=== PATIENT | female | born 1990 | race Caucasian/White ===

== ENCOUNTER 2021-06-17 20:27 | Emergency (ER) | payer OTHER, SELFPAY ==
[~2021-06-17] VITALS: Ht 170.2 cm; Wt 114.4 kg
[~2021-06-17 20:27] MED LIST: ACET-654 PO; ACET1TAB15 PO; ADVI200T PO; ANUS2.5C2 EXT; AUGM500T34 PO; AUGM875T27 PO; BACT800T5 PO; DOCU5LIQ PO; IBUP600T26 PO; LEVO500T PO; MAPA500T17 PO; MOM30SS PO; NICO21DI3 TD; ONDA-1 PO; OXYC1TAB23 PO; PERC7.5T12 PO; PRENTAB66 PO; SENO8.6T9 PO; TYLE325T5 PO; tylenol PO
[2021-06-18] MEDS ORDERED: BACTDSTA PO (03:50)
[2021-06-18] MEDS ORDERED: ERYT5OIN25 OP (03:50)
[2021-06-18] MEDS ORDERED: AZEL1SPR3 NARES (04:54)
[2021-06-18] MEDS ORDERED: PRED20TA PO (04:54)
[2021-06-18] MEDS ORDERED: CETI-24 PO (04:54)
[2021-06-18] MEDS ORDERED: predniSONE 20 MG TAB PO ONE (04:55)
[2021-06-18 05:00] VITALS: BP 132/68
== END 2021-06-18 05:15 | disposition home or self-care (01) ==
LOC: M ED 20:27
DX: J30.2 Other seasonal allergic rhinitis (principal)
CPT/HCPCS: 99283; J7512

== ENCOUNTER 2022-07-18 18:05 | Emergency (ER) | payer OTHER ==
[~2022-07-18] VITALS: Ht 170.2 cm; Wt 101.6 kg
[~2022-07-18 18:05] MED LIST changes: +AZEL1SPR3 NARES; +BACTDSTA PO; +CETI-24 PO; +ERYT5OIN25 OP; +PRED20TA PO
[2022-07-18] MEDS ORDERED: CLAR1TAB13 PO (19:56)
[2022-07-18 20:02] VITALS: BP 120/71
== END 2022-07-18 20:02 | disposition home or self-care (01) ==
LOC: M ED 18:05
DX: H92.03 Otalgia, bilateral (principal)

== ENCOUNTER → 2022-07-25 | Outpatient (REF) | payer OTHER ==
[~2022-07-25] MED LIST changes: +CLAR1TAB13 PO
[2022-07-25 13:45] LABS: APPEARANCE, URINE MANUAL HAZY (CLEAR); BILIRUBIN, URINE MANUAL NEGATIVE (NEGATIVE); BLOOD URINE MANUAL POSITIVE (NEGATIVE); COLOR, URINE MANUAL YELLOW (YELLOW); GLUCOSE, URINE (UA) MANUAL NEGATIVE (NEGATIVE); KETONE, URINE MANUAL NEGATIVE (NEGATIVE); LEUKOCYTE ESTERASE, URINE MAN TRACE (NEGATIVE); NITRITE, URINE MANUAL NEGATIVE (NEGATIVE); PROTEIN, URINE MANUAL TRACE mg/dL (NEGATIVE); UROBILINOGEN, URINE MANUAL NORMAL (NORMAL)
[2022-07-25 14:27] LABS: BACTERIA, URINE SMALL AMOUNT; HYALINE CAST, URINE NONE SEEN /lpf (0-1); MUCUS, URINE LARGE AMOUNT (NEGATIVE); RBC, URINE 20-30 /hpf (0-3); SQUAMOUS EPITHELIAL CELL URINE MOD AMOUNT /hpf (SMALL AMT)
== END ==
LOC: M LAB REF 12:07
PROVIDERS: ATTEND Physician Assistant
DX: N39.0 Urinary tract infection, site not specified (principal)

== ENCOUNTER → 2022-11-18 | Outpatient (REF) | payer OTHER | LOC: M LAB REF 13:01 | PROVIDERS: ATTEND Physician Assistant | DX: R11.0 Nausea (principal); B89 Unspecified parasitic disease ==

== ENCOUNTER 2023-08-13 03:14 | Emergency (ER) | payer OTHER ==
[~2023-08-13] VITALS: Ht 170.2 cm; Wt 101.3 kg
[2023-08-13 05:02] LABS: APPEARANCE, URINE CLEAR (CLEAR); BACTERIA, URINE AUTO NEGATIVE (NEGATIVE); BILIRUBIN, URINE AUTO NEGATIVE (NEGATIVE); BLOOD, URINE BLOOD NEGATIVE (NEGATIVE); COLOR, URINE YELLOW (YELLOW); GLUCOSE, URINE (UA) AUTO NEGATIVE (NEGATIVE); KETONE, URINE AUTO NEGATIVE (NEGATIVE); LEUKOCYTE ESTERASE, URINE AUTO NEGATIVE (NEGATIVE); MUCUS, URINE SMALL (NEGATIVE); NITRITE, URINE AUTO NEGATIVE (NEGATIVE); PROTEIN, URINE AUTO NEGATIVE (NEGATIVE); RBC, URINE AUTO 2 /HPF (0-3); SPECIFIC GRAVITY URINE AUTO 1.028 (1.002-1.035); SQUAMOUS EPITHELIAL CELL UR AU 1 /HPF (0-6); UROBILINOGEN, URINE AUTO 0.2 mg/dL (0.0-2.0); WBC, URINE AUTO 3 /HPF (0-3)
[2023-08-13] MEDS ORDERED: NS 1,000 ML IV ONE (05:15)
[2023-08-13] MEDS ORDERED: ONDANSETRON 4MG 2ML VIAL IV ONE (05:15)
[2023-08-13] MEDS ORDERED: KETOROLAC 30 MG/ML 1ML VIAL IV ONE (05:40)
[2023-08-13] MEDS ORDERED: GASTROGRAFIN SOLUTION 30ML As Ordered ONE (05:43)
[2023-08-13 05:45] LABS: BASO % 0.3 % (0.0-1.0); EOS # 0.1 10^3/uL (0.0-0.5); EOS % 0.8 % (0.0-3.0); HEMATOCRIT 40.2 % (36.0-47.0); HEMOGLOBIN 13.6 g/dl (12.0-15.5); LYMPH # 2.8 10^3/uL (1.5-5.0); LYMPH % 25.2 % (24.0-44.0); MEAN CORPUSCULAR HEMOGLOBIN 30.4 pg (27.0-33.0); MEAN CORPUSCULAR HGB CONC 33.8 g/dl (32.0-36.5); MEAN CORPUSCULAR VOLUME 89.9 fl (80.0-96.0); MONO # 0.7 10^3/uL (0.0-0.8); NEUTROPHILS # 7.4 10^3/uL (1.5-8.5); NEUTROPHILS % 67.5 % (36.0-66.0); PLATELET COUNT, AUTOMATED 244 10^3/uL (150-450); RED BLOOD COUNT 4.47 10^6/uL (4.00-5.40)
[2023-08-13] MEDS: GASTROGRAFIN SOLUTION 30ML PO SCH ×2 (05:50→06:24)
[2023-08-13 06:08] LABS: LIPASE 33 U/L (12-53)
[2023-08-13 06:10] LABS: ALBUMIN 4.1 G/DL (3.2-5.2); ALKALINE PHOSPHATASE 56 U/L (46-116); ALT/SGPT 12 U/L (7.0-40); AST/SGOT 12 U/L (<34); BILIRUBIN,TOTAL 0.6 MG/DL (0.3-1.2); BLOOD UREA NITROGEN 16 MG/DL (9-23); CALCIUM LEVEL 8.9 MG/DL (8.5-10.1); CARBON DIOXIDE LEVEL 26 MMOL/L (20-31); CHLORIDE LEVEL 107 MMOL/L (98-107); CREATININE FOR GFR 0.59 MG/DL (0.55-1.30); GLOMERULAR FILTRATION RATE > 60.0 (>60); GLUCOSE, FASTING 86 MG/DL (60-100); SODIUM LEVEL 142 MMOL/L (136-145); TOTAL PROTEIN 7.4 G/DL (5.7-8.2)
[2023-08-13] MEDS ORDERED: ISOVUE-370 76% 100ML VIAL As Ordered ONE (07:15)
[2023-08-13] MEDS ORDERED: GLYCERIN ADULT SUPP PR ONE (10:00)
[2023-08-13] MEDS ORDERED: HOME MED LIST COMPLETE! XX SCH (11:15)
[2023-08-13] MEDS ORDERED: POLY17PO18 PO (11:22)
[2023-08-13] MEDS ORDERED: PROC1AER16 PR (11:22)
[2023-08-13] MEDS ORDERED: FLOM0.4C39 PO (11:22)
[2023-08-13 12:19] VITALS: BP_SYST 115; TEMP 98.1; O2SAT 100
== END 2023-08-13 12:21 | disposition home or self-care (01) ==
LOC: M ED 03:14
DX: N20.1 Calculus of ureter (principal); K59.00 Constipation, unspecified; K64.9 Unspecified hemorrhoids
CPT/HCPCS: 74177; 80053; 81001; 83605; 83690; 84702; 85025; 96374; 96375; 99284; J1885; J2405; Q9967

== ENCOUNTER 2023-08-19 00:30 | Inpatient (IN) | payer OTHER ==
[~2023-08-19] VITALS: Ht 167.6 cm; Wt 101.7 kg
[~2023-08-19 00:30] MED LIST changes: +FLOM0.4C39 PO; +POLY17PO18 PO; +PROC1AER16 PR
[2023-08-19] MEDS ORDERED: ONDANSETRON 4MG 2ML VIAL IV ONE (00:55)
[2023-08-19] MEDS ORDERED: KETOROLAC 30 MG/ML 1ML VIAL IV ONE (00:55)
[2023-08-19] MEDS ORDERED: NS 1,000 ML IV ONE (00:55)
[2023-08-19 01:02] LABS: BASO # 0.1 10^3/uL (0.0-0.2); BASO % 0.4 % (0.0-1.0); EOS # 0.2 10^3/uL (0.0-0.5); EOS % 1.5 % (0.0-3.0); HEMATOCRIT 41.5 % (36.0-47.0); HEMOGLOBIN 14.2 g/dl (12.0-15.5); LYMPH # 4.1 10^3/uL (1.5-5.0); LYMPH % 36.8 % (24.0-44.0); MEAN CORPUSCULAR HEMOGLOBIN 30.8 pg (27.0-33.0); MEAN CORPUSCULAR HGB CONC 34.2 g/dl (32.0-36.5); MONO # 0.9 10^3/uL (0.0-0.8); NEUTROPHILS % 52.9 % (36.0-66.0); PLATELET COUNT, AUTOMATED 298 10^3/uL (150-450); RED BLOOD COUNT 4.61 10^6/uL (4.00-5.40); WHITE BLOOD COUNT 11.3 10^3/uL (4.0-10.0)
[2023-08-19 01:36] LABS: BLOOD UREA NITROGEN 15 MG/DL (9-23); CALCIUM LEVEL 9.6 MG/DL (8.5-10.1); CARBON DIOXIDE LEVEL 22 MMOL/L (20-31); CHLORIDE LEVEL 108 MMOL/L (98-107); CREATININE FOR GFR 0.66 MG/DL (0.55-1.30); GLOMERULAR FILTRATION RATE > 60.0 (>60); GLUCOSE, FASTING 103 MG/DL (60-100); POTASSIUM SERUM 4.2 MMOL/L (3.5-5.1); SODIUM LEVEL 142 MMOL/L (136-145)
[2023-08-19] MEDS ORDERED: MORPHINE 4 MG/ML 1ML VIAL IV ONE (01:55)
[2023-08-19 04:22] LABS: RSV AMPLIFICATION NEGATIVE (NEGATIVE)
[2023-08-19] MEDS ORDERED: TAMS1CAP17 PO (04:22)
[2023-08-19] MEDS ORDERED: MIRA3350 PO (04:22)
[2023-08-19] MEDS ORDERED: HOME MED LIST COMPLETE! XX SCH (04:25)
[2023-08-19] MEDS ORDERED: HYDROMORPHONE HCL 0.5 MG/ 0.5 ML SYRINGE IV PRN (05:25)
[2023-08-19] MEDS ORDERED: LR 1,000 ML IV SCH (05:25)
[2023-08-19] MEDS ORDERED: ONDANSETRON 4MG 2ML VIAL IV PRN (05:25)
[2023-08-19 06:12] VITALS: BP 106/70; TEMP 97.6; O2SAT 97
[2023-08-19] MEDS ORDERED: SODIUM CHLORIDE HYPERTONIC 3% 4ML NEB SOL INH SCH (08:00)
[2023-08-19 08:20] VITALS: BP 101/57; TEMP 97.7; O2SAT 99
[2023-08-19] MEDS: HYDROMORPHONE HCL 0.5 MG/ 0.5 ML SYRINGE IV PRN ×3 (08:44→22:15)
[2023-08-19] MEDS: NICOTINE 7 MG/24 HR TRANSDERMAL TD SCH (08:45)
[2023-08-19] MEDS: TAMSULOSIN 0.4 MG CAP PO SCH (08:45)
[2023-08-19] MEDS: NS 1,000 ML IV SCH ×2 (09:48→22:12)
[2023-08-19] MEDS ORDERED: PROMETHAZINE 25MG/ML 1ML VIAL IV PRN (10:55)
[2023-08-19] MEDS: cefTRIAXone SOD 1 GM in D5W MINI-BAG PLUS 50 ML IV SCH (11:29)
[2023-08-19 12:00] VITALS: BP 106/68; TEMP 97.8; O2SAT 98
[2023-08-19 15:44] VITALS: BP 103/63; TEMP 98.5; O2SAT 99
[2023-08-19 20:33] LABS: HEMATOCRIT 36.8 % (36.0-47.0); HEMOGLOBIN 12.4 g/dl (12.0-15.5); MEAN CORPUSCULAR HEMOGLOBIN 31.4 pg (27.0-33.0); MEAN CORPUSCULAR HGB CONC 33.7 g/dl (32.0-36.5); MEAN CORPUSCULAR VOLUME 93.2 fl (80.0-96.0); RED BLOOD COUNT 3.95 10^6/uL (4.00-5.40); WHITE BLOOD COUNT 7.3 10^3/uL (4.0-10.0)
[2023-08-19 20:54] LABS: PLATELET COUNT, AUTOMATED 175 10^3/uL (150-450)
[2023-08-19 20:59] LABS: BLOOD UREA NITROGEN 15 MG/DL (9-23); CALCIUM LEVEL 8.4 MG/DL (8.5-10.1); CARBON DIOXIDE LEVEL 25 MMOL/L (20-31); CHLORIDE LEVEL 109 MMOL/L (98-107); CREATININE FOR GFR 0.92 MG/DL (0.55-1.30); GLOMERULAR FILTRATION RATE > 60.0 (>60); GLUCOSE, FASTING 129 MG/DL (60-100); POTASSIUM SERUM 3.6 MMOL/L (3.5-5.1); SODIUM LEVEL 144 MMOL/L (136-145)
[2023-08-20] VITALS (16 sets, daily range): BP systolic 87–117; BP diastolic 51–72; TEMP 97–98.6; O2SAT 92–100
[2023-08-20] MEDS ORDERED: NS 500 ML IV ONE (04:55)
[2023-08-20] MEDS: NS 1,000 ML IV SCH ×2 (05:41→20:01)
[2023-08-20 05:44] LABS: BASO % 0.5 % (0.0-1.0); EOS # 0.1 10^3/uL (0.0-0.5); HEMATOCRIT 33.3 % (36.0-47.0); HEMOGLOBIN 11.2 g/dl (12.0-15.5); LYMPH # 2.3 10^3/uL (1.5-5.0); LYMPH % 37.5 % (24.0-44.0); MEAN CORPUSCULAR HEMOGLOBIN 30.9 pg (27.0-33.0); MEAN CORPUSCULAR HGB CONC 33.6 g/dl (32.0-36.5); MONO # 0.5 10^3/uL (0.0-0.8); MONO % 7.5 % (2.0-8.0); NEUTROPHILS # 3.1 10^3/uL (1.5-8.5); NEUTROPHILS % 52.2 % (36.0-66.0); PLATELET COUNT, AUTOMATED 168 10^3/uL (150-450); RED BLOOD COUNT 3.62 10^6/uL (4.00-5.40)
[2023-08-20 06:03] LABS: BLOOD UREA NITROGEN 12 MG/DL (9-23); CARBON DIOXIDE LEVEL 24 MMOL/L (20-31); CHLORIDE LEVEL 111 MMOL/L (98-107); GLOMERULAR FILTRATION RATE > 60.0 (>60); GLUCOSE, FASTING 85 MG/DL (60-100); SODIUM LEVEL 144 MMOL/L (136-145)
[2023-08-20] MEDS: NICOTINE 7 MG/24 HR TRANSDERMAL TD SCH (09:00)
[2023-08-20] MEDS ORDERED: NS 1,000 ML IV ONE (10:15)
[2023-08-20] MEDS: PERCOCET 5MG/325MG TAB PO PRN (10:18)
[2023-08-20] MEDS: cefTRIAXone SOD 1 GM in D5W MINI-BAG PLUS 50 ML IV SCH (10:18)
[2023-08-20] MEDS: TAMSULOSIN 0.4 MG CAP PO SCH (10:18)
[2023-08-20] MEDS: MORPHINE 2 MG/ML 1ML VIAL IV PRN ×2 (13:08→21:38)
[2023-08-20] MEDS ORDERED: MIDAZOLAM INJ 2MG/2ML VIAL As Ordered ONE (16:01)
[2023-08-20] MEDS ORDERED: fentaNYL 100 MCG/2 ML INJECTION As Ordered ONE (16:02)
[2023-08-20] MEDS ORDERED: propofoL 200 MG/20 ML VIAL As Ordered ONE (16:02)
[2023-08-20] MEDS ORDERED: ONDANSETRON 4MG 2ML VIAL As Ordered ONE (16:02)
[2023-08-20] MEDS ORDERED: LIDOCAINE 2% 100MG/5ML SDV (FOR ANES.) As Ordered ONE (16:02)
[2023-08-20] MEDS ORDERED: KETOROLAC 60MG 2ML VIAL As Ordered ONE (16:02)
[2023-08-20] MEDS ORDERED: ISOVUE-300 61% 100ML VIAL As Ordered ONE (16:17)
[2023-08-20] MEDS ORDERED: oxyCODONE 5MG TAB PO PRN (17:20)
[2023-08-20] MEDS ORDERED: HYDROMORPHONE HCL 0.5 MG/ 0.5 ML SYRINGE IV PRN (17:20)
[2023-08-20] MEDS ORDERED: LR 1,000 ML IV SCH (17:20)
[2023-08-20] MEDS ORDERED: fentaNYL 100 MCG/2 ML INJECTION IV PRN (17:20)
[2023-08-20] MEDS ORDERED: ONDANSETRON 4MG 2ML VIAL IV PRN (17:20)
[2023-08-21] MEDS: MORPHINE 2 MG/ML 1ML VIAL IV PRN (03:47)
[2023-08-21 04:01] VITALS: BP 98/56; TEMP 97.2; O2SAT 96
[2023-08-21] MEDS: PERCOCET 5MG/325MG TAB PO PRN (06:13)
[2023-08-21] MEDS: NS 1,000 ML IV SCH (06:13)
[2023-08-21 06:20] LABS: BASO % 0.2 % (0.0-1.0); EOS % 0.2 % (0.0-3.0); HEMATOCRIT 35.9 % (36.0-47.0); LYMPH # 0.9 10^3/uL (1.5-5.0); LYMPH % 15.5 % (24.0-44.0); MEAN CORPUSCULAR HEMOGLOBIN 30.4 pg (27.0-33.0); MEAN CORPUSCULAR HGB CONC 33.4 g/dl (32.0-36.5); MEAN CORPUSCULAR VOLUME 90.9 fl (80.0-96.0); MONO # 0.2 10^3/uL (0.0-0.8); MONO % 3.8 % (2.0-8.0); NEUTROPHILS # 4.6 10^3/uL (1.5-8.5); NEUTROPHILS % 79.8 % (36.0-66.0); PLATELET COUNT, AUTOMATED 167 10^3/uL (150-450); RED BLOOD COUNT 3.95 10^6/uL (4.00-5.40); WHITE BLOOD COUNT 5.7 10^3/uL (4.0-10.0)
[2023-08-21 06:42] LABS: BLOOD UREA NITROGEN 10 MG/DL (9-23); CALCIUM LEVEL 8.6 MG/DL (8.5-10.1); CARBON DIOXIDE LEVEL 22 MMOL/L (20-31); CHLORIDE LEVEL 110 MMOL/L (98-107); CREATININE FOR GFR 0.49 MG/DL (0.55-1.30); GLOMERULAR FILTRATION RATE > 60.0 (>60); GLUCOSE, FASTING 118 MG/DL (60-100); POTASSIUM SERUM 4.4 MMOL/L (3.5-5.1); SODIUM LEVEL 140 MMOL/L (136-145)
[2023-08-21] MEDS: TAMSULOSIN 0.4 MG CAP PO SCH (08:40)
[2023-08-21] MEDS ORDERED: PERC5TAB12 PO (10:17)
[2023-08-21] MEDS ORDERED: OXYC1TAB23 PO (10:35)
== END 2023-08-21 13:06 | disposition home or self-care (01) | DRG 446 ==
LOC: EDBD 00:30 → M ED 00:30 → M ED INP 05:24 → M PCU 06:04 → M MS4PR 08-20 19:45
PROVIDERS: ADMIT Internal Medicine; ATTEND Internal Medicine
PROC: 0T778DZ Dilation of Left Ureter with Intraluminal Device, Via Natural or Artificial Opening Endoscopic (ICD-10-PCS; 2023-08-20)
PROC: 0TC78ZZ Extirpation of Matter from Left Ureter, Via Natural or Artificial Opening Endoscopic (ICD-10-PCS; principal; 2023-08-20 14:00)
DX: N13.2 Hydronephrosis with renal and ureteral calculous obstruction (principal); Q61.5 Medullary cystic kidney; Z87.440 Personal history of urinary (tract) infections; I95.2 Hypotension due to drugs

== ENCOUNTER 2023-09-04 22:10 | Emergency (ER) | payer OTHER ==
[~2023-09-04] VITALS: Ht 167.6 cm; Wt 100.0 kg
[~2023-09-04 22:10] MED LIST changes: +ACET-897 PO; +FLUC150T9; +FLUC150T9 PO; +IBUP-1022 PO; +MACR100C43 PO; +MIRA3350 PO; +PERC5TAB12 PO; +TAMS1CAP17 PO
[2023-09-04 22:55] LABS: BASO # 0.1 10^3/uL (0.0-0.2); BASO % 0.6 % (0.0-1.0); EOS # 0.1 10^3/uL (0.0-0.5); EOS % 1.5 % (0.0-3.0); HEMATOCRIT 36.7 % (36.0-47.0); LYMPH # 3.4 10^3/uL (1.5-5.0); LYMPH % 39.1 % (24.0-44.0); MEAN CORPUSCULAR HEMOGLOBIN 31.4 pg (27.0-33.0); MEAN CORPUSCULAR HGB CONC 35.4 g/dl (32.0-36.5); MEAN CORPUSCULAR VOLUME 88.6 fl (80.0-96.0); MONO # 0.5 10^3/uL (0.0-0.8); MONO % 5.9 % (2.0-8.0); NEUTROPHILS # 4.6 10^3/uL (1.5-8.5); NEUTROPHILS % 52.8 % (36.0-66.0); PLATELET COUNT, AUTOMATED 233 10^3/uL (150-450); RED BLOOD COUNT 4.14 10^6/uL (4.00-5.40); WHITE BLOOD COUNT 8.7 10^3/uL (4.0-10.0)
[2023-09-04 23:24] LABS: BLOOD UREA NITROGEN 10 MG/DL (9-23); CALCIUM LEVEL 8.8 MG/DL (8.5-10.1); CARBON DIOXIDE LEVEL 23 MMOL/L (20-31); CHLORIDE LEVEL 112 MMOL/L (98-107); CREATININE FOR GFR 0.64 MG/DL (0.55-1.30); GLOMERULAR FILTRATION RATE > 60.0 (>60); GLUCOSE, FASTING 90 MG/DL (60-100); POTASSIUM SERUM 4.3 MMOL/L (3.5-5.1); SODIUM LEVEL 143 MMOL/L (136-145)
[2023-09-05] MEDS ORDERED: NITROFURANTOIN (MACROBID) 100 MG CAP PO ONE (01:20)
[2023-09-05 02:00] VITALS: TEMP 98.9
[2023-09-05] MEDS ORDERED: PERCOCET 5MG/325MG TAB PO ONE (02:00)
[2023-09-05] MEDS ORDERED: ONDA4TAB6 PO (02:22)
[2023-09-05] MEDS ORDERED: OXYCODONE/APAP 5MG/325MG(HOME DOSE PACK) PO ONE (03:00)
[2023-09-05 03:30] VITALS: BP 105/80; O2SAT 98
== END 2023-09-05 03:35 | disposition home or self-care (01) ==
LOC: M ED 22:10
DX: R10.32 Left lower quadrant pain (principal); T83.84XA Pain due to genitourinary prosthetic devices, implants and grafts, initial encounter; Z79.1 Long term (current) use of non-steroidal anti-inflammatories (NSAID); Z79.899 Other long term (current) drug therapy; Z79.2 Long term (current) use of antibiotics

== ENCOUNTER 2025-04-21 19:29 | Emergency (ER) | payer OTHER ==
[~2025-04-21] VITALS: Ht 172.7 cm; Wt 106.4 kg
[~2025-04-21 19:29] MED LIST changes: -FLOM0.4C39 PO; +ONDA-282 PO; +TAMS-18 PO
[2025-04-21 20:36] LABS: BASO # 0.0 10^3/uL (0.0-0.2); BASO % 0.4 % (0.0-1.0); EOS # 0.1 10^3/uL (0.0-0.5); EOS % 0.8 % (0.0-3.0); LYMPH # 2.8 10^3/uL (1.5-5.0); LYMPH % 30.3 % (24.0-44.0); MONO # 0.6 10^3/uL (0.0-0.8); MONO % 6.6 % (2.0-8.0); NEUTROPHILS # 5.6 10^3/uL (1.5-8.5); NEUTROPHILS % 61.7 % (36.0-66.0); PLATELET COUNT, AUTOMATED 236 10^3/uL (150-450)
[2025-04-21 21:01] LABS: ALT/SGPT 14 U/L (7.0-40); AST/SGOT 19 U/L (<34); CALCIUM LEVEL 9.0 MG/DL (8.5-10.1); CARBON DIOXIDE LEVEL 24 MMOL/L (20-31); CHLORIDE LEVEL 107 MMOL/L (98-107); CREATININE FOR GFR 0.61 MG/DL (0.55-1.30); GLOMERULAR FILTRATION RATE > 90.0 (>60); POTASSIUM SERUM 4.0 MMOL/L (3.5-5.1); SODIUM LEVEL 143 MMOL/L (136-145)
[2025-04-21] MEDS: ONDANSETRON 4MG 2ML VIAL IV ONE (21:12)
[2025-04-21] MEDS: ACETAMINOPHEN *IV* 1,000 MG in IV 1 EA IV ONE (21:13)
[2025-04-21 21:25] LABS: HCG, SERUM QUALITATIVE NEGATIVE (NEGATIVE)
[2025-04-21] MEDS: DICYCLOMINE 10 MG CAP PO ONE (21:51)
[2025-04-21] MEDS: NS (Normal Saline) 0.9% 1,000 ML IV ONE (22:05)
[2025-04-21] MEDS ORDERED: ISOVUE-370 76% 100 ML VIAL As Ordered ONE (22:08)
[2025-04-21 23:55] VITALS: BP 112/71; TEMP 98.2; O2SAT 97
== END 2025-04-21 23:59 | disposition home or self-care (01) ==
LOC: M ED 19:29
DX: N20.0 Calculus of kidney (principal); Z87.442 Personal history of urinary calculi; Z79.1 Long term (current) use of non-steroidal anti-inflammatories (NSAID); Z79.83 Long term (current) use of bisphosphonates; Z79.899 Other long term (current) drug therapy
CPT/HCPCS: 74177; 80048; 80076; 83690; 84703; 85025; 96365; 96366; 96375; 99284; J0131; J2405; Q9967

== ENCOUNTER 2025-09-23 14:42 | Emergency (ER) | payer OTHER ==
[~2025-09-23] VITALS: Ht 167.6 cm; Wt 98.3 kg
[~2025-09-23 14:42] MED LIST changes: -BACTDSTA PO; -IBUP-1022 PO; +IBUP600T42 PO; +SULF-8 PO
[2025-09-23 15:28] LABS: APPEARANCE, URINE CLEAR (CLEAR); BACTERIA, URINE AUTO NEGATIVE (NEGATIVE); BILIRUBIN, URINE AUTO NEGATIVE (NEGATIVE); BLOOD, URINE BLOOD NEGATIVE (NEGATIVE); GLUCOSE, URINE (UA) AUTO NEGATIVE (NEGATIVE); KETONE, URINE AUTO NEGATIVE (NEGATIVE); LEUKOCYTE ESTERASE, URINE AUTO NEGATIVE (NEGATIVE); MUCUS, URINE SMALL (NEGATIVE); NITRITE, URINE AUTO NEGATIVE (NEGATIVE); PROTEIN, URINE AUTO NEGATIVE (NEGATIVE); RBC, URINE AUTO 1 /HPF (0-3); SPECIFIC GRAVITY URINE AUTO 1.009 (1.002-1.035); SQUAMOUS EPITHELIAL CELL UR AU 1 /HPF (0-6); UROBILINOGEN, URINE AUTO 0.2 mg/dL (0.0-2.0); WBC, URINE AUTO 1 /HPF (0-3)
[2025-09-23 16:25] LABS: BASO # 0.0 10^3/uL (0.0-0.2); BASO % 0.4 % (0.0-1.0); EOS # 0.1 10^3/uL (0.0-0.5); EOS % 1.0 % (0.0-3.0); LYMPH # 3.2 10^3/uL (1.5-5.0); LYMPH % 30.7 % (24.0-44.0); MONO # 0.6 10^3/uL (0.0-0.8); MONO % 5.8 % (2.0-8.0); NEUTROPHILS # 6.5 10^3/uL (1.5-8.5); NEUTROPHILS % 61.8 % (36.0-66.0); PLATELET COUNT, AUTOMATED 247 10^3/uL (150-450)
[2025-09-23 16:50] LABS: CALCIUM LEVEL 9.0 MG/DL (8.5-10.1); CARBON DIOXIDE LEVEL 24 MMOL/L (20-31); CHLORIDE LEVEL 105 MMOL/L (98-107); CREATININE FOR GFR 0.54 MG/DL (0.55-1.30); GLOMERULAR FILTRATION RATE > 90.0 (>60); POTASSIUM SERUM 4.5 MMOL/L (3.5-5.1); SODIUM LEVEL 139 MMOL/L (136-145)
[2025-09-23 16:53] LABS: HCG, SERUM QUALITATIVE POSITIVE (NEGATIVE)
[2025-09-23] MEDS ORDERED: ONDA-282 PO (18:19)
[2025-09-23 18:23] VITALS: BP 135/75; TEMP 97.8; O2SAT 100
== END 2025-09-23 18:27 | disposition home or self-care (01) ==
LOC: M ED 14:42
DX: O20.0 Threatened abortion (principal); Z87.440 Personal history of urinary (tract) infections; O46.91 Antepartum hemorrhage, unspecified, first trimester; Z3A.08 8 weeks gestation of pregnancy; O34.81 Maternal care for other abnormalities of pelvic organs, first trimester; N83.12 Corpus luteum cyst of left ovary